=== PATIENT | female | born 1960 | race Caucasian/White ===

== ENCOUNTER → 2019-06-02 | Day surgery (SDC) | payer MEDICARE ==
[~2019-06-02] MED LIST: ACYC400T PO; ASPI-630 PO; CARV25TA2 PO; CYCL10TA2 PO; DULO60CA6 PO; HYDR-2769 PO; IV RINGERS,LACTATED 1000ML 1,000 ML IV ONE; LISI-334 PO; NIFE60TA16 PO; OMEP20TA63 PO; PROPOFOL 20 ML IV ONE
[2019-06-02 13:40] VITALS: BP 110/76
== END | disposition home or self-care (01) ==
LOC: SURG 11:37
PROVIDERS: ATTEND Internal Medicine Gastroenterology
DX: K22.2 Esophageal obstruction (principal); K21.0 Gastro-esophageal reflux disease with esophagitis; F15.90 Other stimulant use, unspecified, uncomplicated; M79.7 Fibromyalgia; F17.210 Nicotine dependence, cigarettes, uncomplicated; F32.9 Major depressive disorder, single episode, unspecified; Z88.6 Allergy status to analgesic agent; Z88.5 Allergy status to narcotic agent; Z88.8 Allergy status to other drugs, medicaments and biological substances
CPT/HCPCS: 43235; 43450; J2704